=== PATIENT | female | born 1955 | race Caucasian/White ===

== ENCOUNTER 2025-04-03 12:52 | Emergency (ER) | payer MEDICARE, SELFPAY ==
--- NOTE | 2025-04-03 12:45 | RT.EKG_ITS ---
APPROVED REPORT Exam: Resting ECG Reason for Exam: dizzy Patient Location: E HR:61 bpm ECG Measurements Heart Rate 61 AXIS WA 138 P 0 QRSd 139 QRS 53 QT 460 T 68 QTc 463 Conclusion Sinus rhythm...normal P axis, V-rate 60- 99 Left bundle branch block...QRSd>120, broad/notched R ST elevation secondary to IVCD...Multiple VCG criteria No Occlusion HI. Not meeting Sgarbossa nor modified Hernandez criteria.
[2025-04-03 12:54] VITALS: BP 144/69; PULSE 70; RESP 13; TEMP 36.6; O2SAT 92
[2025-04-03 13:40] VITALS: PULSE 63
[2025-04-03 13:50] VITALS: PULSE 60
--- NOTE | 2025-04-03 14:54 | W.ED.GENAD ---
Discharge Plan Disposition Patient Disposition: Home Condition: Stable Discharge Details Clinical Impression: Balance problem, Bilateral tinnitus, Blurred vision, left eye Primary Care Provider: Livia Villarreal ED Provider: Elmira Rios Home Meds and New Rx's Prescriptions: New fluticasone propionate [Flonase Allergy Relief] 50 mcg/actuation spray,suspension 1 spray intranasal Q12H Qty: 16 0RF Rx Instructions: administer into each nostril No Action fluoxetine 10 mg capsule 30 mg PO DAILY lamotrigine [Lamictal] 25 mg tablet 75 mg PO DAILY famotidine [Acid Controller] 20 mg tablet 20 mg PO BID cholecalciferol (vitamin D3) 25 mcg (1,000 unit) capsule 1,000 unit PO ONCE hydroxyzine HCl 10 mg tablet 10 mg PO QHS magnesium 200 mg tablet 400 mg PO DAILY ferrous sulfate [Iron (ferrous sulfate)] 325 mg (65 mg iron) tablet 325 mg PO Q OTHER DAY Discharge Instructions Instructions: Vestibular Exercises Additional Instructions: You were seen in the ED for balance issues and blurry vision. In our department, you had a full physical exam, had laboratory studies that were largely reassuring, with no evidence of heart damage, though you look slightly dehydrated. Your CT scan of your brain did not show any sign of stroke or other abnormalities, but you do have some fluid in your left ear which could definitely be causing the symptoms. Please keep your appointment with your eye doctor tomorrow, and contact your primary care provider to discuss this visit and any symptoms that change, worsen, or persist. I provided you with a prescription for Flonase to use to help with the fluid in your ear, as well as a referral to physical therapy for balance exercises and treatment. Please follow-up with your primary care provider in the next few days to discuss this visit and any symptoms that change, worsen, or persist. Thank you for allowing us to be part of your care. Stand Alone Forms: Physical Therapy Referral, Portal Information HPI General Mode of arrival: ambulatory. Date/Time Provider Initiated Documentation: 04/03/25 13:04. Limitations to Documentation: no limitations. Information obtained by: patient and old records reviewed. HPI Narrative: This is a 69-year-old female patient without significant past medical history presenting for evaluation of several weeks of balance issues, and gradually worsening vision and speech changes. The patient reports that she has felt the symptoms for the last few weeks, states that she does not have dizziness specifically, but has noticed that her balance does not feel quite the same. She went cross-country skiing 2 days ago and felt like she was falling more frequently over to the left side. She reports that she feels like she has to take very slow careful steps, which is not typical for her. She always has floaters, but has noted worsening blurriness of her left sided vision over the last several days. This morning she woke up and she felt very unlike herself, states that she feels like she has to be very careful with her words so that she does not sound like she is slurring her speech, states that her bilateral tinnitus has been worse than typical. The balance problems are not exacerbated by movements of the head and are not accompanied by vertigo. She does feel that she has worse balance when she stands up. No recent trauma or injury, denies manipulation of the neck, does not take any blood thinners. She has an eye doctor appointment tomorrow, wears corrective lenses. No changes to her medications, eating and drinking typically, no numbness, weakness of the extremities reported. Related Data Home Medications ?Medication ?Instructions ?Recorded ?Confirmed cholecalciferol (vitamin D3) 25 1,000 unit PO ONCE 04/03/25 04/03/25 mcg (1,000 unit) capsule famotidine 20 mg tablet (Acid 20 mg PO BID 04/03/25 04/03/25 Controller) ferrous sulfate 325 mg (65 mg 325 mg PO Q OTHER DAY 04/03/25 04/03/25 iron) tablet (Iron (ferrous sulfate)) fluoxetine 10 mg capsule 30 mg PO DAILY 04/03/25 04/03/25 fluticasone propionate 50 1 spray intranasal Q12H #16 grams 04/03/25 mcg/actuation nasal spray,suspension (Flonase Allergy Relief) hydroxyzine HCl 10 mg tablet 10 mg PO QHS 04/03/25 04/03/25 lamotrigine 25 mg tablet (Lamictal) 75 mg PO DAILY 04/03/25 04/03/25 magnesium 200 mg tablet 400 mg PO DAILY 04/03/25 04/03/25 Previous Rx's ?Medication ?Instructions ?Recorded fluticasone propionate 50 1 spray intranasal Q12H #16 grams 04/03/25 mcg/actuation nasal spray,suspension (Flonase Allergy Relief) Allergies Allergy/AdvReac Type Severity Reaction Status Date / Time No Known Allergies Allergy Verified 04/03/25 13:03 General Stated Complaint: Dizzy/Sync KATLYN: 3 Exam Narrative Exam Narrative: Gen: awake and alert, in no apparent distress. Appears well nourished. HEENT: PERRL, EOMs full and without nystagmus. External ears and nose normal, mucous membranes moist. Neck: Supple, full range of motion, no observable masses Lungs: No increased work of breathing CV: Heart with regular rate and rhythm. Strong and symmetrical radial pulses. Abdomen: Soft, nondistended MSK: No joint swelling, no redness. Full ROM without limitation, no external traumatic findings. Skin: No rashes or lesions to visualized skin. Normal color, warm, and dry. Neuro: Cranial nerves II-XII intact and symmetrical bilaterally. 5/5 strength in all muscle groups x4 extremities. No sensory deficits. Ambulates with some poor balance and need for stability/correction with the hands. Accurate targeting with [id number], [id number], no dysdiadochokinesis Psych: Appropriate for situation. Course Vital Signs Vital signs: Vital Signs Temperature 36.6 C 04/03/25 12:54 Pulse 70 04/03/25 12:54 Respiratory Rate 13 04/03/25 12:54 Blood Pressure 144/69 H 04/03/25 12:54 Pulse Oximetry 92 04/03/25 12:54 Temperature 36.6 C 04/03/25 12:54 Temperature Source Oral 04/03/25 12:54 Pulse 70 04/03/25 12:54 Pulse 60 04/03/25 13:50 Respiratory Rate 13 04/03/25 12:54 Blood Pressure 144/69 H 04/03/25 12:54 Blood Pressure Position Sitting 04/03/25 12:54 Pulse Oximetry 92 04/03/25 12:54 Oxygen Delivery Method Room Air 04/03/25 12:54 Oxygen Flow Rate 0 04/03/25 12:54 Medical Decision Making This is a 69-year-old female patient presenting for evaluation of gradual onset of gait/balance disturbance, blurry vision, and changes in speech. My differential includes but is not limited to intracranial abnormalities including stroke, LVO, aneurysm, intracranial hemorrhage, dural venous sinus thrombosis, dissection. Certainly considered metabolic and electrolyte derangements, anemia, kidney and liver injury, patient does not have a restrictive diet to suggest vitamin B12 deficiency. No fever or localizing infectious symptoms to suggest infection as the cause of her complaint today. I certainly considered peripheral causes of her symptoms, though the patient is without vertigo, and there is no oppositionality to her symptoms suggestive of BPPV. We will obtain labs to include CBC, CMP, magnesium, troponin, INR, and will obtain CTA of the brain and neck. An EKG was obtained which shows a sinus rhythm with a left bundle branch block, unchanged for the patient, with no evidence of active ischemia. - I reviewed the patient's laboratory studies, which show no leukocytosis, anemia, or thrombocytopenia. Chemistry panel reveals no significant electrolyte derangements or evidence of liver dysfunction other than an elevated AST to 59, which can be rechecked in the outpatient environment. The patient's BUN to creatinine ratio is greater than 20:1 and I provided her with a liter of IV fluid for mild dehydration. Troponin was negative. CTA of the brain and neck shows no intracranial abnormalities such as ischemia, vascular abnormality or bleeding, and given the duration of symptoms I feel that this is an appropriate test for ruling out acute stroke. She did have some evidence of fluid in her left mastoid air cells, and on repeat evaluation I do note a very small effusion without purulence or bulging of the left ear. The patient could certainly be experiencing an inner ear problem such as labyrinthitus or M?ni?re's disease, I provided her with a prescription for Flonase to trial for eustachian tube dysfunction, as well as a referral to physical therapy for vestibular and balance treatment. Her symptoms are not consistent with BPPV given the lack of positionality and the duration that they have persisted. At this time, the patient has had a full medical evaluation and is safe for discharge to home. They are hemodynamically stable, ambulatory, and tolerating PO. They are understanding of the follow-up plan and return precautions. They left our facility without incident. Elmira Rios MD [facility] All Active Problems (Updated 04/03/25 @ 16:32 by Elmira Rios MD) Blurred vision, left eye (Acute) Bilateral tinnitus (Acute) Balance problem (Acute) Social History Smoking/Tobacco Use Status: Never Smoking risk assessment performed?: Yes Alcohol Intake: current Alcohol Intake frequency: a few times a week Drug use: Occasionally Substance use type: marijuana Do you feel safe at home: Yes Do you feel safe in your relationship?: Yes
[2025-04-03 15:06] LABS: Abs Immature Grans 0.01 10^3/uL (0.0-0.06); HCT 35.8 % (36.0-46.0); HGB 11.5 g/dL (11.2-15.7); Immature Grans % 0.2 %; MCH 29.2 pg (27.0-33.0); MCHC 32.1 % (32.0-36.0); MCV 91 fL (80-95); MPV 10.8 fL (8.0-11.0); Platelet Count 272 10^3/uL (130-400); RBC 3.94 10^6/uL (3.93-5.22); RDW 13.7 % (11.7-14.6); RDW-SD 45.3 fL; WBC 4.21 10^3/uL (4.4-10.8)
[2025-04-03 15:27] LABS: INR 1.0 (0.9-1.1); Prothrombin Time 9.4 sec (9.1-11.1)
[2025-04-03 15:31] LABS: Magnesium 2.2 mg/dL (1.6-2.6)
[2025-04-03 15:32] LABS: Troponin I 3 ng/L (<35)
[2025-04-03 15:33] LABS: ALT 47 U/L (10-49); AST 59 U/L (<34); Albumin 4.4 g/dL (3.2-5.0); Alkaline Phosphatase 74 U/L (46-116); Anion Gap 6.9 mmol/L (3-11); BUN 30 mg/dL (9-23); Bilirubin, Total 0.6 mg/dL (0.2-1.2); CO2 29.1 mmol/L (20.0-31.0); Calcium 9.0 mg/dL (8.3-10.6); Chloride 105 mmol/L (98-107); Glucose 88 mg/dL (74-106); Potassium 4.1 mmol/L (3.5-5.1); Sodium 141 mmol/L (136-145); Total Protein 6.9 g/dL (5.7-8.2)
[2025-04-03] MEDS: Normal Saline Flush 10 ML SYR IVP (15:39)
[2025-04-03] MEDS: Omnipaque 350 MG/ML 100 ML BTL IJ (15:39)
[2025-04-03] MEDS: Normal Saline - Diluent 50 ML VIAL IJ (15:39)
--- NOTE | 2025-04-03 15:55 | DI.CT_ITS ---
Exam(s) CT BRAIN NECK CTA EXAM: CT BRAIN NECK CTA CLINICAL HISTORY: ataxia, blurry vision L. eye, eval stroke. TECHNIQUE: Imaging Protocol: Axial CT angiography was performed with multi- slice acquisition and multi-planar and MIP reconstructions. CONTRAST MATERIAL: Intravenous: Omnipaque 350 Contrast volume:70 ml COMPARISON: No exams were available for comparison FINDINGS: CT Head W/O and W contrast: Ventricles and Extra axial spaces: Normal in size and morphology for the patient's age. Hemorrhage: None. Cerebral parenchyma: No evidence of acute infarct or mass. No significant atrophy. No visible white matter changes. Midline shift: None. Brainstem/Cerebellum: No acute findings.. Calvarium: Normal. Visualized Paranasal sinuses/Mastoids: There is a small amount of fluid within the inferior left mastoid air cells. Soft Tissues: Unremarkable. Enhancement: Normal. Venous sinuses are patent. CTA Brain W: Internal Carotid Arteries: Right: No aneurysm, occlusion or significant stenosis. Left: No aneurysm, occlusion or significant stenosis. Middle Cerebral Arteries: Right: No aneurysm, occlusion or significant stenosis. Left: No aneurysm, occlusion or significant stenosis. Anterior Cerebral Arteries: Right: No aneurysm, occlusion or significant stenosis. Left: No aneurysm, occlusion or significant stenosis. Posterior cerebral Arteries: Right: No aneurysm, occlusion or significant stenosis. Left: No aneurysm, occlusion or significant stenosis. Vertebral Arteries: Right: No aneurysm, occlusion or significant stenosis. Left: No aneurysm, occlusion or significant stenosis. Basilar Artery: No aneurysm, occlusion or significant stenosis. CTA Neck W: No significant atherosclerotic changes. Visualized aorta: Unremarkable. Visualized pulmonary arteries: Unremarkable. Subclavian arteries: Unremarkable. Common Carotid: Right: No dissection, occlusion or significant stenosis. Left: No dissection, occlusion or significant stenosis. External Carotid: Right: No dissection, occlusion or significant stenosis. Left: No dissection, occlusion or significant stenosis. Internal Carotid: Right: No dissection, occlusion or significant stenosis. Left: No dissection, occlusion or significant stenosis. Vertebral Artery: Right: No dissection, occlusion or significant stenosis. Left: No dissection, occlusion or significant stenosis. Lung Apices: No acute findings. Bones: No acute abnormality. Degenerative disc changes at C5-6 and C6-7. Soft Tissues: Normal. IMPRESSION: 1. CTA brain: Normal CTA examination of the [place]. 2. Head CT: No acute abnormality. 3. CTA neck: No evidence of occlusion, significant stenosis or dissection. No visible atherosclerotic changes. RADIATION DOSE DELIVERED: Total DLP DATA REPOSITORY: All CT scans at this facility are submitted to the National Radiology Data Registry (NRDR) Dose Index Registry (DIR) with the [employer] ([employer]). RADIATION OPTIMIZATION: All CT scans at this facility use at least one of these dose optimization techniques: automated exposure control; mA and/or kV adjustment per patient size (includes targeted exams where dose is matched to clinical indication); or iterative reconstruction.
[2025-04-03] MEDS: Lactated Ringers 1,000 ML 1000 ML IV (16:09)
[2025-04-03 16:43] LABS: Troponin I < 3 ng/L (<35)
[2025-04-03 16:44] VITALS: BP 117/65; PULSE 60; RESP 18; O2SAT 98
[2025-04-03 16:45] VITALS: RESP 16
== END 2025-04-03 17:08 | disposition home or self-care (01) ==
PROVIDERS: Emergency Provider Emergency Medicine; PCP Nurse Practitioner
DX: R26.89 Other abnormalities of gait and mobility (principal); H53.8 Other visual disturbances; H93.13 Tinnitus, bilateral
CPT/HCPCS: 36415; 70496; 70498; 80053; 93005; 96360; 99285; 83735; 84484; 85025; 85610; 93010; 99284; J3490